=== PATIENT | female | born 1980 | race Caucasian/White ===

== ENCOUNTER → 2023-05-10 09:25 | Outpatient (CLI) | payer OTHER, SELFPAY ==
[2023-05-10 19:17] LABS: Add Manual Diff / Slide Review NO; Basophils Absolute Auto 0 /uL (0-100); Eosinophils Absolute Auto 100 /uL (0-450); Eosinophils Percent Auto 1.6 % (2-4); Hemoglobin 13.6 g/dL (12.0-16.0); Lymphocytes Absolute Auto 1900 /uL (1100-4500); Lymphocytes Percent Auto 38.1 % (25-40); Mean Corpuscular HGB Conc 33.1 % (30-36); Mean Corpuscular Hemoglobin 29.1 PG (26-34); Mean Corpuscular Volume 87.8 fL (80-100); Monocytes Absolute Auto 400 /uL (0-900); Monocytes Percent Auto 8.9 % (3-14); Neutrophils Absolute Auto 2500 /uL (1500-7000); Neutrophils Percent Auto 50.4 % (50-75); Platelet Count 295 X10^3/uL (150-400); Red Blood Cell Count 4.66 X10^6/uL (4.0-5.2); Red Cell Distribution Width 14.6 % (11.6-14.8); White Blood Cell Count 4.9 X10^3/uL (4.5-11.0)
[2023-05-10 19:29] LABS: Alanine Aminotransferase 19 IU/L (<35); Albumin 4.2 g/dL (3.5-5.0); Albumin Globulin Ratio 1.5 (1.0-2.8); Alkaline Phosphatase 65 U/L (38-126); Aspartate Aminotransferase 28 IU/L (14-36); BUN Creatinine Ratio 16.4 (6-22); Bilirubin Total 0.7 mg/dL (0.2-1.3); Blood Urea Nitrogen 11 mg/dL (7-17); Calcium 9.5 mg/dL (8.4-10.2); Carbon Dioxide 28 mmol/L (22-32); Chloride 104 mmol/L (98-107); Cholesterol 172 mg/dL (140-199); Estimated Glomerular Filt Rate > 60 mL/min (>60); Globulin 2.8 g/dL (1.7-4.1); Glucose 86 mg/dL (70-100); HDL Cholesterol 71 mg/dL (40-60); HEMOLYSIS < 15 (0-50); LDL Cholesterol Calculated 85 mg/dL (<100); Potassium 4.1 mmol/L (3.4-5.1); Sodium 138 mmol/L (137-145); Triglycerides 79 mg/dL (35-150)
[2023-05-10 19:55] LABS: Ferritin 8 ng/mL (6-137)
[2023-05-10 20:23] LABS: HEMOLYSIS < 15 (0-50); Iron 77 ug/dL (37-170)
[2023-05-10 20:27] LABS: Folate 8.4 ng/mL (2.76-20.0); Vitamin B12 Reflex MMA if <400 200 pg/mL (239-931)
[2023-05-10 20:34] LABS: Percent Iron Saturation 18 % (15-50); Total Iron Binding Capacity 428 ug/dL (265-497); Transferrin 348 mg/dL (206-381)
[2023-05-10 20:42] LABS: Vitamin D 25 Hydroxy (D3) 33.7 ng/mL (30.0-100.0)
[2023-05-14 09:43] LABS: Zinc 78 ug/dL (44-115)
[2023-05-15 02:08] LABS: Methylmalonic Acid,Serum 190 nmol/L (0-378)
[2023-05-15 09:54] LABS: Vitamin B1 110.9 nmol/L (66.5-200.0)
[2023-05-15 21:48] LABS: Calcium 9.4 mg/dL (8.7-10.2); Parathyroid Hormone, Intact 31 pg/mL (15-65)
[2023-05-17 10:32] LABS: Alpha-Tocopherol 9.5 mg/L (7.0-25.1); Gamma-Tocopherol 1.2 mg/L (0.5-5.5); Vitamin A 41.6 ug/dL (20.1-62.0)
[2023-05-17 11:11] LABS: Vitamin C 0.9 mg/dL (0.4-2.0)
== END ==
PROVIDERS: PCP Family Medicine; Visit Provider Family Medicine
DX: Z98.84 Bariatric surgery status (principal); I10 Essential (primary) hypertension; Z71.3 Dietary counseling and surveillance; Z13.6 Encounter for screening for cardiovascular disorders; Z13.1 Encounter for screening for diabetes mellitus; G62.9 Polyneuropathy, unspecified
CPT/HCPCS: 80053; 80061; 82180; 82306; 82310; 82525; 82607; 82728; 82746; 83540; 83550; 83921; 83970; 84425; 84443; 84446; 84590; 84630; 85025

== ENCOUNTER → 2023-11-19 11:25 | Outpatient (CLI) | payer BC, SELFPAY ==
[2023-11-19 20:19] LABS: INR 0.9 (0.9-1.3); Prothrombin Time 10.8 SECONDS (9.4-12.5)
[2023-11-19 20:52] LABS: Vitamin D 25 Hydroxy (D3) 48.5 ng/mL (30.0-100.0)
[2023-11-19 21:13] LABS: Ferritin 10 ng/mL (6-137)
[2023-11-19 22:32] LABS: Vitamin B12 259 pg/mL (239-931)
== END ==
PROVIDERS: PCP Family Medicine; Visit Provider Family Medicine
DX: I10 Essential (primary) hypertension (principal); Z98.84 Bariatric surgery status; Z71.3 Dietary counseling and surveillance; E53.8 Deficiency of other specified B group vitamins; Z13.1 Encounter for screening for diabetes mellitus; Z13.6 Encounter for screening for cardiovascular disorders; R79.0 Abnormal level of blood mineral; R79.89 Other specified abnormal findings of blood chemistry
CPT/HCPCS: 82306; 82607; 82728; 85610

== ENCOUNTER → 2023-12-14 11:05 | Outpatient (CLI) | payer BC, SELFPAY ==
--- NOTE | 2023-12-14 11:06 | DI.MG.S_ITS ---
BILATERAL DIGITAL SCREENING MAMMOGRAM 3D/2D WITH CAD: 12/14/2023 CLINICAL: Baseline exam. Routine screening. No prior exams were available for comparison. There are scattered areas of fibroglandular density (category b / 25%-50% glandular tissue). Current study was also evaluated with a Computer Aided Detection (CAD) system. There are benign calcifications in both breasts. No significant masses, calcifications, or other findings are seen in either breast. IMPRESSION: BENIGN There is no mammographic evidence of malignancy. A 1 year screening mammogram is recommended. Based on the Tyrer Cuzick model (a risk assessment model) the patient's lifetime risk is 8.8% and her 10 year risk is 1.4%. According to the ACR, ACS, and NCCN guidelines, an annual breast MRI exam along with mammogram is recommended if the patient's lifetime risk is 20% or greater. This exam was interpreted at Station ID: [id number]. NOTE: For mammograms, a report in lay terms will be sent to the patient. Approximately 15% of breast malignancies will not be visualized mammographically. In the management of a palpable breast mass, a negative mammogram must not discourage biopsy of a clinically suspicious lesion. Electronically Signed By: Talon [email or web address]/[email or web address]:12/14/2023 17:08:17 letter sent: Normal Exam ACR BI-RADS Category 2: Benign
== END ==
PROVIDERS: PCP Family Medicine; Referring Provider Family Medicine; Visit Provider Family Medicine
DX: Z12.31 Encounter for screening mammogram for malignant neoplasm of breast (principal)
CPT/HCPCS: 77063; 77067

== ENCOUNTER → 2024-02-25 10:42 | Outpatient (CLI) | payer BC, SELFPAY ==
[2024-02-25 20:30] LABS: Ferritin 29 ng/mL (6-137)
[2024-02-25 20:45] LABS: Vitamin B12 > 1000 pg/mL (239-931)
== END ==
PROVIDERS: PCP Family Medicine; Visit Provider Family Medicine
DX: E53.8 Deficiency of other specified B group vitamins (principal); R79.0 Abnormal level of blood mineral; Z98.84 Bariatric surgery status
CPT/HCPCS: 82607; 82728

== ENCOUNTER → 2024-06-19 09:22 | Outpatient (CLI) | payer BC, SELFPAY ==
[2024-06-19 19:23] LABS: Add Manual Diff / Slide Review NO; Basophils Absolute Auto 100 /uL (0-100); Basophils Percent Auto 1.2 % (0-2); Eosinophils Absolute Auto 100 /uL (0-450); Eosinophils Percent Auto 1.4 % (2-4); Hematocrit 40.8 % (36-46); Hemoglobin 13.9 g/dL (12.0-16.0); Lymphocytes Absolute Auto 2100 /uL (1100-4500); Lymphocytes Percent Auto 36.9 % (25-40); Mean Corpuscular HGB Conc 33.9 % (30-36); Mean Corpuscular Hemoglobin 32.8 PG (26-34); Mean Corpuscular Volume 96.7 fL (80-100); Monocytes Absolute Auto 500 /uL (0-900); Monocytes Percent Auto 8.8 % (3-14); Neutrophils Absolute Auto 2900 /uL (1500-7000); Neutrophils Percent Auto 51.7 % (50-75); Platelet Count 306 X10^3/uL (150-400); Red Blood Cell Count 4.22 X10^6/uL (4.0-5.2); Red Cell Distribution Width 13.7 % (11.6-14.8); White Blood Cell Count 5.6 X10^3/uL (4.5-11.0)
[2024-06-19 19:33] LABS: Alanine Aminotransferase 30 IU/L (<35); Albumin 4.4 g/dL (3.5-5.0); Albumin Globulin Ratio 1.8 (1.0-2.8); Alkaline Phosphatase 57 U/L (38-126); Aspartate Aminotransferase 99 IU/L (14-36); BUN Creatinine Ratio 17.1 (6-22); Bilirubin Total 0.6 mg/dL (0.2-1.3); Blood Urea Nitrogen 13 mg/dL (7-17); Calcium 9.5 mg/dL (8.4-10.2); Carbon Dioxide 29 mmol/L (22-32); Chloride 103 mmol/L (98-107); Cholesterol 154 mg/dL (140-199); Estimated Glomerular Filt Rate > 60 mL/min (>60); Globulin 2.4 g/dL (1.7-4.1); Glucose 91 mg/dL (70-100); HDL Cholesterol 51 mg/dL (40-60); HEMOLYSIS 15 (0-50); Hemoglobin A1C% w Est Avg Glu 4.9 % (4.0-6.0); LDL Cholesterol Calculated 90 mg/dL (<100); Potassium 4.1 mmol/L (3.4-5.1); Sodium 138 mmol/L (137-145); Total Protein 6.8 g/dL (6.3-8.2); Triglycerides 64 mg/dL (35-150)
[2024-06-19 19:46] LABS: Vitamin D 25 Hydroxy (D3) 51.5 ng/mL (30.0-100.0)
[2024-06-19 20:15] LABS: Vitamin B12 > 1000 pg/mL (239-931)
[2024-06-19 20:16] LABS: Ferritin 18 ng/mL (6-137)
== END ==
PROVIDERS: PCP Family Medicine; Visit Provider Family Medicine
DX: Z98.84 Bariatric surgery status (principal); I10 Essential (primary) hypertension; R79.0 Abnormal level of blood mineral; R79.89 Other specified abnormal findings of blood chemistry; E66.01 Morbid (severe) obesity due to excess calories; Z68.41 Body mass index [BMI] 40.0-44.9, adult; E53.8 Deficiency of other specified B group vitamins; Z13.1 Encounter for screening for diabetes mellitus; Z13.6 Encounter for screening for cardiovascular disorders
CPT/HCPCS: 80053; 80061; 82306; 82607; 82728; 83036; 84443; 85025

== ENCOUNTER → 2025-01-26 13:55 | Outpatient (CLI) | payer BC, SELFPAY ==
[2025-01-26 19:27] LABS: Alanine Aminotransferase 25 IU/L (<35); Albumin 4.5 g/dL (3.5-5.0); Albumin Globulin Ratio 1.7 (1.0-2.8); Alkaline Phosphatase 75 U/L (38-126); Blood Urea Nitrogen 15 mg/dL (7-17); Calcium 9.6 mg/dL (8.4-10.2); Carbon Dioxide 25 mmol/L (22-32); Chloride 103 mmol/L (98-107); Estimated Glomerular Filt Rate > 60 mL/min (>60); Globulin 2.7 g/dL (1.7-4.1); Glucose 176 mg/dL (70-99); HEMOLYSIS 21 (0-50); Potassium 4.4 mmol/L (3.4-5.1); Sodium 137 mmol/L (137-145); Total Protein 7.2 g/dL (6.3-8.2)
[2025-01-26 19:57] LABS: Ferritin 56 ng/mL (6-137)
[2025-01-26 20:33] LABS: Vitamin D 25 Hydroxy (D3) 42.2 ng/mL (30.0-100.0)
== END ==
PROVIDERS: PCP Family Medicine; Visit Provider Family Medicine
DX: R79.89 Other specified abnormal findings of blood chemistry (principal); R74.01 Elevation of levels of liver transaminase levels; Z98.84 Bariatric surgery status; I10 Essential (primary) hypertension; R79.0 Abnormal level of blood mineral
CPT/HCPCS: 80053; 82306; 82728